=== PATIENT | female | born 1970 | race Caucasian/White ===

== ENCOUNTER 2020-05-04 00:09 | Emergency (ER) | payer BC, OTHER ==
[~2020-05-04] VITALS: Ht 162.6 cm; Wt 98.0 kg
[2020-05-04 01:05] LABS: BASOPHILS % (AUTO) 0 % (0-1); EOSINOPHILS % (AUTO) 0 % (1-7); LYMPHOCYTES % (AUTO) 16 % (22-44); MEAN CORPUSCULAR HEMOGLOBIN 31.9 pg (27.0-34.8); MEAN CORPUSCULAR HGB CONC 34.2 g/dL (32.4-35.8); MEAN PLATELET VOLUME 8.5 fL (7.4-10.4); MONOCYTES % (AUTO) 5 % (2-9); NEUTROPHILS % (AUTO) 78 % (42-75); PLATELET COUNT 360 x10^3/uL (130-400); RED BLOOD COUNT 4.42 x10^6/uL (3.82-5.3); RED CELL DISTRIBUTION WIDTH 13.5 % (9.6-15.2)
[2020-05-04 01:06] LABS: MD NO
[2020-05-04 01:16] LABS: ANION GAP 5 mmol/L (5-15); CALCIUM 8.9 mg/dL (8.5-10.1); CHLORIDE 108 mmol/L (98-107); CREATININE 0.99 mg/dL (0.55-1.02)
--- NOTE | 2020-05-04 02:32 | NUR ---
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
--- NOTE | 2020-05-04 02:40 | NUR ---
cc of sharp headache pain in back left side of head 12/01. pt stated headache woke her from sleep. she has had headache for a few days but it has increased in severity this am. pt states she also was having ground glass sensation in her L hand around thanksgiving and has a neurology appoitment in a week. denies vision changes or weakness. does have a family hx of stroke, pt very concered for stroke. daughter at bedside.
[2020-05-04] MEDS ORDERED: PROCHLORPERAZINE 5 MG/ML, 2ML IM ONE (03:00)
[2020-05-04] MEDS ORDERED: KETOROLAC 30 MG/1 ML IM ONE (03:00)
[2020-05-04] MEDS ORDERED: DIPHENHYDRAMINE 25 MG CAPSULE PO ONE (03:00)
[2020-05-04] MEDS ORDERED: KETOROLAC 30 MG/1 ML ONE (03:04)
[2020-05-04] MEDS ORDERED: DIPHENHYDRAMINE 25 MG CAPSULE ONE (03:04)
[2020-05-04] MEDS ORDERED: PROCHLORPERAZINE 5 MG/ML, 2ML ONE (03:04)
--- NOTE | 2020-05-04 04:16 | NUR ---
pt resting in room no needs at this time. daughter at bedside
[2020-05-04] MEDS ORDERED: OMNIPAQUE 350 MG/ML, 100ML BOTTLE ONE (04:52)
[2020-05-04 05:00] VITALS: BP 159/99
== END 2020-05-04 05:16 | disposition home or self-care (01) ==
LOC: ED 04:40
DX: M54.81 Occipital neuralgia (principal); R51.9 Headache, unspecified; M47.812 Spondylosis without myelopathy or radiculopathy, cervical region
CPT/HCPCS: 36415; 70450; 70496; 70498; 80048; 85025; 93005; 96372; 99285; J0780; J1885; Q0163; Q9967

== ENCOUNTER 2021-02-08 15:57 | Emergency (ER) | payer BC ==
[~2021-02-08] VITALS: Ht 162.6 cm; Wt 96.3 kg
[2021-02-08 16:17] VITALS: BP 137/88
[2021-02-08 16:56] LABS: BASOPHILS % (AUTO) 1 % (0-1); EOSINOPHILS % (AUTO) 1 % (1-7); LYMPHOCYTES % (AUTO) 31 % (22-44); MEAN CORPUSCULAR HEMOGLOBIN 31.4 pg (27.0-34.8); MEAN CORPUSCULAR HGB CONC 33.5 g/dL (32.4-35.8); MEAN PLATELET VOLUME 7.7 fL (7.4-10.4); MONOCYTES % (AUTO) 7 % (2-9); NEUTROPHILS % (AUTO) 61 % (42-75); PLATELET COUNT 367 x10^3/uL (130-400); RED BLOOD COUNT 4.68 x10^6/uL (3.82-5.3); RED CELL DISTRIBUTION WIDTH 13.5 % (9.6-15.2)
--- NOTE | 2021-02-08 17:44 | NUR ---
TASK RN: PER LAB, SAMPLE HEMOLYZED WILL COME REDRAW.
--- NOTE | 2021-02-08 17:55 | NUR ---
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
[2021-02-08] MEDS ORDERED: EZET10TA70 PO (18:12)
[2021-02-08] MEDS ORDERED: LEVO88TA4 PO (18:12)
[2021-02-08] MEDS ORDERED: MEDR2.5T30 PO (18:12)
[2021-02-08] MEDS ORDERED: MIRT15TA94 PO (18:12)
[2021-02-08] MEDS ORDERED: LAMO300T2 PO (18:12)
[2021-02-08] MEDS ORDERED: SIMV20TA19 PO (18:12)
[2021-02-08] MEDS ORDERED: CYAN1TAB29 PO (18:12)
[2021-02-08 18:54] LABS: ALBUMIN 3.5 g/dL (3.4-5.0); ANION GAP 6 mmol/L (5-15); CHLORIDE 110 mmol/L (98-107)
[2021-02-08 19:02] LABS: ALANINE AMINOTRANSFERASE 30 U/L (12-78); ALKALINE PHOSPHATASE 76 U/L (45-117); BILIRUBIN,TOTAL 0.4 mg/dL (0.2-1.0); CREATININE 1.15 mg/dL (0.55-1.02); TOTAL PROTEIN 8.1 g/dL (6.4-8.2); TROPONIN I < 0.015 ng/mL (0.000-0.045)
--- NOTE | 2021-02-08 20:13 | NUR ---
PT AMBULATORY WITH STEADY GAIT. STATES SHE FEELS LIGHT HEADED WHEN AMBULATING. HR 85 AND PULSE OX 96% WITH AMBULATION.
--- NOTE | 2021-02-08 20:14 | NUR ---
MD AT BEDSIDE TO REASSES. PT ELOPED.
--- NOTE | 2021-02-08 20:14 | NUR ---
PT ALSO REFUSING UA AT THIS TIME. STATES "SINCE IM DYING I WANT TO GO HOME AND I DONT NEED A TEST". MD PHILLIPS.
[2021-02-08 20:28] LABS: FREE T4 (FREE THYROXINE) 1.25 ng/dL (0.76-1.46)
== END 2021-02-08 20:31 | disposition left against medical advice (07) ==
LOC: ED 16:00
DX: R53.83 Other fatigue (principal); R55 Syncope and collapse; R07.89 Other chest pain; R53.1 Weakness
CPT/HCPCS: 36415; 71045; 80053; 83735; 84439; 84443; 84484; 84703; 85025; 93005; 99285